=== PATIENT | male | born 1995 | race Caucasian/White ===

== ENCOUNTER 2019-05-05 17:58 | Emergency (ER) | payer BC, OTHER ==
--- NOTE | 2019-05-05 18:44 | EDM.PDOC ---
<Payam Graves - Last Filed: 05/05/19 18:57> ED HPI GENERAL MEDICAL PROBLEM - General Chief Complaint: Lower Extremity Injury/Pain Stated Complaint: TRIPPED AND HURT KNEE Time Seen by Provider: 05/05/19 18:40 - Related Data Allergies Allergy/AdvReac Type Severity Reaction Status Date / Time adhd mediication Allergy Cannot Uncoded 05/05/19 18:22 Remember Home Meds: Home Meds . [No Known Home Meds] 05/05/19 [History] Course - Vital Signs Last Recorded V/S: Last Vital Signs Temp 97.4 F 05/05/19 18:19 Pulse 94 05/05/19 18:19 Resp 18 05/05/19 18:19 BP 162/99 H 05/05/19 18:19 Pulse Ox 98 05/05/19 18:19 - Orders/Labs/Meds Orders: Active Orders 24 hr Category Date Time Status Knee 3V Lt [CR] Urgent Exams 05/05/19 18:46 Taken Labs: Laboratory Tests 05/05/19 05/05/19 Range/Units 18:55 18:55 WBC 8.9 (5.0-10.0) 10^3/uL RBC 5.23 (4.6-6.2) 10^6/uL Hgb 16.2 (14.0-18.0) g/dL Hct 48.1 (40.0-54.0) % MCV 92.0 (80-100) fL MCH 31.0 (27.0-34.0) pg MCHC 33.7 (33.0-35.0) g/dL Plt Count 237 (150-450) 10^3/uL Neut % (Auto) 67.7 (42.2-75.2) % Lymph % (Auto) 22.9 (20.5-50.1) % Beaver % (Auto) 7.6 (2-8) % Eos % (Auto) 1.6 (1.0-3.0) % Baso % (Auto) 0.2 (0.0-1.0) % C-Reactive Protein 1.5 H (0.0-1.3) mg/dL - Re-Assessments/Exams Free Text/Narrative Re-Assessment/Exam: 05/05/19 18:57 I personally performed or re-performed the physical examination and medical decision making. I have verified all student documentation or findings, including history, physical exam and/or medical decision making. Departure - Departure Disposition: Home, Self-Care 01 Clinical Impression: Knee sprain Qualifiers: Encounter type: initial encounter Laterality: left - Discharge Information Instructions: Knee Sprain, Adult Forms: ED Department Discharge Additional Instructions: Alternate Tylenol and ibuprofen for discomfort and swelling. May rest, ice, elevation for swelling. Monitor for sign and symptoms of infection. <Philomena Jimenez - Last Filed: 05/05/19 19:34> ED HPI GENERAL MEDICAL PROBLEM - General Source of Information: Reports: Patient History Limitations: Reports: No Limitations - History of Present Illness INITIAL COMMENTS - FREE TEXT/NARRATIVE: Patient was at work on Saturday when he tripped on a cord and landed on his left knee. Patient states that since this has happened he has been noticing "fluid buildup" on this knee. Patient does have history of left knee joint effusions that required wound vac care in 2013. Patient states that on Saturday night () he "felt warm" but does not have a thermometer, did take Tylenol at that time and felt that this resolved his "fever". Is afebrile at this time. Patient reports that he has been feeling more fatigued as well. Patient denies any N/V. Onset Date: 05/01/19 Location: Reports: Lower Extremity, Left (knee) Quality: Reports: Ache (with fluid buildup) Severity: Mild Left Knee Pain Score (Numeric/FACES): 4 Past Medical History - Infectious Disease History Infectious Disease History: Reports: Other (See Below) Other Infectious Disease History: staph - Past Surgical History Musculoskeletal Surgical History: Reports: Other (See Below) Other Musculoskeletal Surgeries/Procedures:: infection in left knee with wound vac treatment Social & Family History - Family History Family Medical History: Noncontributory - Tobacco Use Smoking Status *Q: Never Smoker - Caffeine Use Caffeine Use: Reports: Soda - Recreational Drug Use Recreational Drug Use: No Review of Systems - Review of Systems Review Of Systems: ROS reveals no pertinent complaints other than HPI. ED EXAM, GENERAL - Physical Exam Exam: See Below Exam Limited By: No Limitations General Appearance: Alert, WD/WN, No Apparent Distress Respiratory/Chest: No Respiratory Distress, Lungs Clear, Normal Breath Sounds, No Accessory Muscle Use, Chest Non-Tender Cardiovascular: Normal Peripheral Pulses, Regular Rate, Rhythm, No Edema, No Gallop, No JVD, No Murmur, No Rub Peripheral Pulses: 2+: Posterior Tibial (L), Posterior Tibial (R), Dorsalis Pedis (L), Dorsalis Pedis (R) GI/Abdominal: Normal Bowel Sounds, Soft, Non-Tender, No Organomegaly, No Distention, No Abnormal Bruit, No Mass Extremities: Normal Range of Motion, Non-Tender, No Pedal Edema, Normal Capillary Refill. No: Normal Inspection (noted swelling to left knee, surgical scar appreciated) Skin Exam: Warm, Dry, Intact, Normal Color, No Rash Course - Orders/Labs/Meds Orders: Active Orders 24 hr Category Date Time Status Knee 3V Lt [CR] Urgent Exams 05/05/19 18:46 Taken Labs: Laboratory Tests 05/05/19 05/05/19 Range/Units 18:55 18:55 WBC 8.9 (5.0-10.0) 10^3/uL RBC 5.23 (4.6-6.2) 10^6/uL Hgb 16.2 (14.0-18.0) g/dL Hct 48.1 (40.0-54.0) % MCV 92.0 (80-100) fL MCH 31.0 (27.0-34.0) pg MCHC 33.7 (33.0-35.0) g/dL Plt Count 237 (150-450) 10^3/uL Neut % (Auto) 67.7 (42.2-75.2) % Lymph % (Auto) 22.9 (20.5-50.1) % Beaver % (Auto) 7.6 (2-8) % Eos % (Auto) 1.6 (1.0-3.0) % Baso % (Auto) 0.2 (0.0-1.0) % C-Reactive Protein 1.5 H (0.0-1.3) mg/dL - Radiology Interpretation Free Text/Narrative:: No acute findings on XRAY, see rad report. Departure - Departure Time of Disposition: 19:35 Condition: Good - Discharge Information *PRESCRIPTION DRUG MONITORING PROGRAM REVIEWED*: No *COPY OF PRESCRIPTION DRUG MONITORING REPORT IN PATIENT KAYLIN: No <Kenna Quijano - Last Filed: 05/05/19 19:42> Course - Re-Assessments/Exams Free Text/Narrative Re-Assessment/Exam: 05/05/19 19:42 I personally performed or re-performed the physical examination and medical decision making. I have verified all student documentation or findings, including history, physical exam and/or medical decision making.
== END 2019-05-05 19:45 | disposition home or self-care (01) ==
LOC: DL.ED 17:58
DX: S83.92XA Sprain of unspecified site of left knee, initial encounter (principal); W18.09XA Striking against other object with subsequent fall, initial encounter
CPT/HCPCS: 36415; 73562-LT; 85025; 86140; 99283-25

== ENCOUNTER 2022-01-08 20:05 | Emergency (ER) | payer OTHER ==
[2022-01-08] MEDS ORDERED: Levofloxacin 500 MG Tab PO ONE (22:02)
== END 2022-01-08 22:14 | disposition home or self-care (01) ==
LOC: DL.ED 20:05
DX: N45.1 Epididymitis (principal); R79.1 Abnormal coagulation profile; Z98.52 Vasectomy status; Z87.891 Personal history of nicotine dependence; Z88.0 Allergy status to penicillin; Z88.1 Allergy status to other antibiotic agents; Z88.8 Allergy status to other drugs, medicaments and biological substances; Z20.822 Contact with and (suspected) exposure to COVID-19
CPT/HCPCS: 36415; 81001; 83605; 85025; 85379; 86140; 87635; 99284; A9270; U0002

== ENCOUNTER 2023-04-11 08:07 | Emergency (ER) | payer OTHER ==
[2023-04-11] MEDS ORDERED: Tranexamic Acid 1,000 MG/10 ML Vial TOP ONE (08:53)
== END 2023-04-11 09:21 | disposition home or self-care (01) ==
LOC: DL.ED 08:07
DX: I83.892 Varicose veins of left lower extremity with other complications (principal); E83.19 Other disorders of iron metabolism; I87.2 Venous insufficiency (chronic) (peripheral); E66.9 Obesity, unspecified; Z68.42 Body mass index [BMI] 45.0-49.9, adult; Z88.0 Allergy status to penicillin; Z88.1 Allergy status to other antibiotic agents
CPT/HCPCS: 99283; J3490

== ENCOUNTER 2025-08-05 08:51 | Emergency (ER) | payer OTHER, BC | END 2025-08-05 11:45 | disposition home or self-care (01) | LOC: DL.ED 08:51 | DX: S90.01XA Contusion of right ankle, initial encounter (principal); S00.83XA Contusion of other part of head, initial encounter; Z88.0 Allergy status to penicillin; Z79.899 Other long term (current) drug therapy; V49.49XA Driver injured in collision with other motor vehicles in traffic accident, initial encounter; Y93.89 Activity, other specified | CPT/HCPCS: 70486; 73610; 73630; 73700; 99284; A9270 ==